=== PATIENT | male | born 1995 | race African-American/Black ===

== ENCOUNTER 2018-11-17 07:28 | Inpatient (IN) | payer BC, MEDICAID ==
[~2018-11-17] VITALS: Ht 170.2 cm; Wt 67.2 kg
[2018-11-17] VITALS (24 sets, daily range): BP systolic 106–129; BP diastolic 59–96
[~2018-11-17 07:28] MED LIST: ALBUTEROL
[2018-11-17] MEDS ORDERED: SODIUM CHLORIDE 0.9% 1,000 ML IV ONE ×2 (07:48→09:15)
[2018-11-17 08:41] LABS: BASOPHILS % 1.2 % (0.0-2.0); EOSINOPHILS % 0.4 % (0.0-5.0); HEMOGLOBIN. 17.9 g/dL (14.0-18.0); LYMPHOCYTES % 11.9 % (20.0-50.0); MEAN CORPUSCULAR HEMOGLOBIN 33.2 pg (28.0-32.0); MEAN CORPUSCULAR VOLUME 107.8 fL (80.0-94.0); MEAN PLATELET VOLUME 10.5 fl (7.4-10.4); NEUTROPHILS % 75.5 % (40.0-76.0); PLATELET 306 x1000/uL (130-400); RED BLOOD CELL COUNT 5.38 mill/uL (4.7-6.1); RED CELL DISTRIBUTION WIDTH 14.7 % (11.6-14.6)
[2018-11-17 09:04] LABS: CHLORIDE 100 mEq/L (98-107)
[2018-11-17 09:13] LABS: ETHANOL BLOOD < 10 mg/dL
[2018-11-17] MEDS ORDERED: INSULIN REGULAR (DRIP) 100 UNITS in SODIUM CHLORIDE 0.9% 100 ML IV ONE (09:15)
[2018-11-17] MEDS ORDERED: INSULIN REGULAR (DRIP) 100 UNITS in SODIUM CHLORIDE 0.9% 99 ML IV NR (09:30)
[2018-11-17 09:35] LABS: BG BASE EXCESS -32.1 mmol/L (-2.0-2.0); BG CARBOXYHEMOGLOBIN 0.1 % (0.5-1.5); BG DEOXYHEMOGLOBIN 2.5 % (0.0-5.0); BG FRACTION INSPIRED OXYGEN 21; BG HCO3 ACT 1.6 mmol/L (22.0-26.0); BG METHEMOGLOBIN 0.5 % (0.0-1.5); BG OXYGEN SATURATION 97.5 % (92.0-98.5); BG OXYHEMOGLOBIN 96.9 % (94.0-97.0); BG PCO2 10.6 mmHg (35.0-45.0); BG PH 6.806 (7.350-7.450); BG PO2 150.2 mmHg (75.0-100.0); BG SAMPLE SITE LEFT BRACHIAL; BG TOTAL HEMOGLOBIN 16.5 g/dL (12.0-18.0); BG VENT MODE ROOM AIR
[2018-11-17 09:42] LABS: BETA HYDROXYBUTYRATE 14.9 mMol/L (0.0-0.3)
[2018-11-17] MEDS ORDERED: IPRATROPIUM/ALBUTEROL 0.5-3(2.5)MG/3ML NEB INH PRN (11:00)
[2018-11-17] MEDS ORDERED: DIPHENHYDRAMINE 50MG/ML VIAL IV PRN (11:00)
[2018-11-17] MEDS ORDERED: ONDANSETRON HCL 4MG/2ML INJ IV PRN (11:00)
[2018-11-17] MEDS ORDERED: CLONIDINE 0.1MG TABLET PO PRN (11:00)
[2018-11-17] MEDS ORDERED: ACETAMINOPHEN 325MG TABLET PO PRN (11:00)
[2018-11-17] MEDS ORDERED: MAGNESIUM/ALUMINUM HYDROXIDE/SIMETHICONE 30ML UDC PO PRN (11:00)
[2018-11-17] MEDS ORDERED: HYDROCODONE/ACETAMINOPHEN 5/325MG TABLET PO PRN (11:00)
[2018-11-17] MEDS ORDERED: DOCUSATE SODIUM 100MG CAPSULE PO PRN (11:00)
[2018-11-17] MEDS ORDERED: CEFTRIAXONE 1 G PREMIX 50 ML IV SCH (11:00)
[2018-11-17] MEDS ORDERED: GUAIFENESIN 200MG/10ML SUGAR FREE UDC PO PRN (11:00)
[2018-11-17] MEDS ORDERED: SODIUM BICARBONATE 8.4% 1 MEQ/ML 50ML SYR IV ONE (11:15)
[2018-11-17 12:13] LABS: CHLORIDE 103 mEq/L (98-107)
[2018-11-17] MEDS ORDERED: SODIUM CHLORIDE 0.9% 1,000 ML IV SCH (12:30)
[2018-11-17] MEDS ORDERED: INSULIN REGULAR (DRIP) 100 UNITS in SODIUM CHLORIDE 0.9% 99 ML IV PRN (12:30)
[2018-11-17 12:45] LABS: CLARITY URINE CLEAR (CLEAR); COLOR URINE YELLOW (YELLOW); KETONES URINE 4+ (NEGATIVE); LEUKOCYTE ESTERASE URINE NEGATIVE (NEGATIVE); NITRITE URINE NEGATIVE (NEGATIVE); OCCULT BLOOD URINE NEGATIVE (NEGATIVE); PROTEIN URINE 2+ (NEGATIVE); SPECIFIC GRAVITY URINE 1.025 (1.005-1.030); UROBILINOGEN URINE 0.2 E.U./dL (0.2-1.0)
[2018-11-17] MEDS ORDERED: DEXTROSE 50% WATER 50ML SYRINGE IV PRN ×2 (12:45)
[2018-11-17] MEDS ORDERED: INSULIN REGULAR (DRIP) 100 UNITS in SODIUM CHLORIDE 0.9% 100 ML IV SCH (13:00)
[2018-11-17 13:05] LABS: *BARBITURATES SCREEN URINE NEGATIVE (NEGATIVE); *BENZODIAZEPINES SCREEN URINE NEGATIVE (NEGATIVE); *COCAINE SCREEN URINE NEGATIVE (NEGATIVE)
[2018-11-17 13:06] LABS: *AMPHETAMINES SCREEN URINE NEGATIVE (NEGATIVE); CANNABINOID URINE SCREEN NEGATIVE (NEGATIVE); METHADONE URINE SCREEN NEGATIVE (NEGATIVE); OPIATES URINE SCREEN NEGATIVE (NEGATIVE); PHENCYCLIDINE URINE SCREEN NEGATIVE (NEGATIVE)
[2018-11-17] MEDS: BLOOD SUGAR DIAGNOSTIC STRIP TEST SCH ×11 (13:12→23:00)
[2018-11-17] MEDS: CEFTRIAXONE 1 G PREMIX 50 ML IV SCH (13:22)
[2018-11-17] MEDS: ENOXAPARIN 40MG/0.4ML SYR SUBCUT SCH (13:32)
[2018-11-17 17:32] LABS: CHLORIDE 113 mEq/L (98-107)
[2018-11-17 17:40] LABS: CREATINE KINASE MB FRACTION 1.3 ng/mL (0.5-3.6)
[2018-11-17] MEDS: DEXT 5%/0.9% NACL KCL 20MEQ/L 1,000 ML IV SCH ×2 (17:51→22:32)
[2018-11-17] MEDS ORDERED: INSU100I32 SQ (18:36)
[2018-11-17] MEDS ORDERED: INSU100I28 SQ (18:36)
[2018-11-17 22:56] LABS: CHLORIDE 116 mEq/L (98-107)
[2018-11-17 23:04] LABS: CREATINE KINASE 38 IU/L (39-308)
[2018-11-17 23:06] LABS: CREATINE KINASE MB FRACTION 1.5 ng/mL (0.5-3.6)
[2018-11-18] VITALS (48 sets, daily range): BP systolic 64–154; BP diastolic 27–92
[2018-11-18] MEDS: BLOOD SUGAR DIAGNOSTIC STRIP TEST SCH ×21 (00:59→20:47)
[2018-11-18 02:34] LABS: CHLORIDE 118 mEq/L (98-107)
[2018-11-18] MEDS: DEXT 5%/0.9% NACL KCL 20MEQ/L 1,000 ML IV SCH ×2 (03:25→09:02)
[2018-11-18 05:23] LABS: BASOPHILS % 0.7 % (0.0-2.0); EOSINOPHILS % 0.4 % (0.0-5.0); HEMATOCRIT. 40.1 % (42.0-52.0); HEMOGLOBIN. 13.6 g/dL (14.0-18.0); LYMPHOCYTES % 9.9 % (20.0-50.0); MEAN CORPUSCULAR HEMOGLOBIN 32.9 pg (28.0-32.0); MEAN CORPUSCULAR VOLUME 96.6 fL (80.0-94.0); MEAN PLATELET VOLUME 9.3 fl (7.4-10.4); MONOCYTES % 11.4 % (2.0-8.0); NEUTROPHILS % 77.6 % (40.0-76.0); PLATELET 162 x1000/uL (130-400); RED BLOOD CELL COUNT 4.15 mill/uL (4.7-6.1); RED CELL DISTRIBUTION WIDTH 13.9 % (11.6-14.6)
[2018-11-18 05:25] LABS: CHLORIDE 122 mEq/L (98-107)
[2018-11-18 05:42] LABS: LDL CHOLESTEROL 81 mg/dL (5-100)
[2018-11-18 05:45] LABS: HDL CHOLESTEROL 44 mg/dL (40-59)
[2018-11-18] MEDS: CEFTRIAXONE 1 G PREMIX 50 ML IV SCH (09:02)
[2018-11-18] MEDS: ENOXAPARIN 40MG/0.4ML SYR SUBCUT SCH (09:27)
[2018-11-18 09:39] LABS: CHLORIDE 122 mEq/L (98-107)
[2018-11-18] MEDS: DEXT IV SCH ×2 (11:46→20:51)
[2018-11-18] MEDS: NACL IV SCH ×2 (11:46→20:51)
[2018-11-18] MEDS: POTASSIUM CHLORIDE IV SCH ×2 (11:46→20:51)
[2018-11-18] MEDS ORDERED: DEXTROSE 50% WATER 50ML SYRINGE IV PRN (15:30)
[2018-11-18] MEDS: INSULIN LISPRO 100 UNITS/ML SUBCUT SCH ×2 (17:42→20:53)
[2018-11-19] VITALS (39 sets, daily range): BP systolic 87–123; BP diastolic 44–75
[2018-11-19 05:58] LABS: BASOPHILS % 1.2 % (0.0-2.0); EOSINOPHILS % 1.9 % (0.0-5.0); HEMATOCRIT. 38.2 % (42.0-52.0); HEMOGLOBIN. 12.7 g/dL (14.0-18.0); LYMPHOCYTES % 29.7 % (20.0-50.0); MEAN CORPUSCULAR VOLUME 98.9 fL (80.0-94.0); MEAN PLATELET VOLUME 9.3 fl (7.4-10.4); MONOCYTES % 7.5 % (2.0-8.0); NEUTROPHILS % 59.7 % (40.0-76.0); PLATELET 116 x1000/uL (130-400); RED BLOOD CELL COUNT 3.86 mill/uL (4.7-6.1); RED CELL DISTRIBUTION WIDTH 14.5 % (11.6-14.6)
[2018-11-19 06:05] LABS: CHLORIDE 111 mEq/L (98-107)
[2018-11-19] MEDS: NACL IV SCH (06:55)
[2018-11-19] MEDS: POTASSIUM CHLORIDE IV SCH (06:55)
[2018-11-19] MEDS: DEXT IV SCH (06:55)
[2018-11-19] MEDS: BLOOD SUGAR DIAGNOSTIC STRIP TEST SCH ×4 (08:12→20:41)
[2018-11-19] MEDS: INSULIN LISPRO 100 UNITS/ML SUBCUT SCH ×7 (09:05→20:41)
[2018-11-19] MEDS: ENOXAPARIN 40MG/0.4ML SYR SUBCUT SCH (09:14)
[2018-11-19] MEDS: INSULIN GLARGINE UD 100 UNITS/ML SYR SUBCUT SCH ×2 (10:58→21:11)
[2018-11-20] VITALS: BP 95/61
[2018-11-20 03:34] VITALS: BP 107/56
[2018-11-20 06:39] LABS: CHLORIDE 108 mEq/L (98-107)
[2018-11-20 06:40] LABS: BASOPHILS % 0.8 % (0.0-2.0); HEMATOCRIT. 35.6 % (42.0-52.0); HEMOGLOBIN. 12.5 g/dL (14.0-18.0); LYMPHOCYTES % 52.2 % (20.0-50.0); MEAN CORPUSCULAR HEMOGLOBIN 33.6 pg (28.0-32.0); MEAN PLATELET VOLUME 9.5 fl (7.4-10.4); PLATELET 123 x1000/uL (130-400); RED BLOOD CELL COUNT 3.71 mill/uL (4.7-6.1); RED CELL DISTRIBUTION WIDTH 14.2 % (11.6-14.6)
[2018-11-20] MEDS: INSULIN LISPRO 100 UNITS/ML SUBCUT SCH ×4 (06:51→12:26)
[2018-11-20] MEDS: BLOOD SUGAR DIAGNOSTIC STRIP TEST SCH ×2 (06:51→12:24)
[2018-11-20] MEDS ORDERED: POTASSIUM CHLORIDE 20MEQ TABLET SR PO SCH (07:45)
[2018-11-20 08:00] VITALS: BP 110/62
[2018-11-20] MEDS ORDERED: POTASSIUM CHLORIDE INJ 40 MEQ in DEXT 5% WATER 500 ML IV SCH (09:00)
[2018-11-20] MEDS: ENOXAPARIN 40MG/0.4ML SYR SUBCUT SCH (09:00)
[2018-11-20] MEDS: INSULIN GLARGINE UD 100 UNITS/ML SYR SUBCUT SCH (10:12)
[2018-11-20 12:00] VITALS: BP 98/52
[2018-11-20 14:47] VITALS: BP 100/60
[2018-11-20 16:00] VITALS: BP 101/68
== END 2018-11-20 17:03 | disposition home or self-care (01) | DRG 639 ==
LOC: ER 07:48 → CVICU 09:25 → EDBEDREQSVC 09:36 → EDBEDREQ 09:36 → ENRESERV 11:08 → CVICU 14:40 → 6EST 11-19 21:35
PROVIDERS: ADMIT Internal Medicine; ATTEND Internal Medicine
DX: E10.10 Type 1 diabetes mellitus with ketoacidosis without coma (principal); D72.829 Elevated white blood cell count, unspecified; J45.909 Unspecified asthma, uncomplicated; R80.9 Proteinuria, unspecified; R82.4 Acetonuria; Z79.4 Long term (current) use of insulin; Z79.899 Other long term (current) drug therapy; Z68.23 Body mass index [BMI] 23.0-23.9, adult
CPT/HCPCS: 36415; 36600; 71045; 80048; 80061; 80305; 80320; 82010; 82375; 82550; 82553; 82805; 82962; 83036; 83735; 84100; 84443; 93005; 93970; 96374; 96375; 99291; J0696; J1650; J1815; J3480; J3490; J7030; J7050; J7060; G0480